=== PATIENT | male | born 1975 | race Two or more races ===

== ENCOUNTER 2020-07-05 21:34 | Emergency (ER) | payer SELFPAY ==
[2020-07-05 21:58] VITALS: BP 206/131; PULSE 100; RESP 20; TEMP 36.9; O2SAT 95
--- NOTE | 2020-07-05 21:59 | ECG_ITS ---
Measurements Intervals [place] Rate: 89 P: 14 GA: 184 QRS: 4 QRSD: 104 T: 27 QT: 365 QTc: 446 Interpretive Statements SINUS RHYTHM BORDERLINE R WAVE PROGRESSION, ANTERIOR LEADS BASELINE WANDER- II, AVR, AVL, AVF, V1 BORDERLINE ECG Electronically Signed On 07-06-2020 7:37:29 CDT by Boris Thomas D.O.
--- NOTE | 2020-07-05 22:17 | ED.GENADULT ---
HPI - General Adult General Chief complaint: Shortness of Breath/Dyspnea Stated complaint: trouble breathing Source: patient Mode of arrival: ambulatory Limitations: no limitations History of Present Illness HPI narrative: Yuliet is a Croatian speaking man with a PMH of HTN that presented to the ER because he has been out of his meds for 5 days. Since being out of meds he has had some sweating, dizziness, and blurred vision. He has some pain in his upper back when he drives. No anuria, nausea, chest pain, or syncope. Related Data Home Medications Medication Instructions Recorded Confirmed amlodipine 10 mg PO DAILY 07/05/20 07/05/20 amlodipine [Norvasc] 10 mg PO DAILY 07/05/20 07/05/20 aspirin [Adult Aspirin EC Low 81 mg PO DAILY 07/05/20 07/05/20 Strength] metoprolol tartrate 100 mg PO DAILY 07/05/20 07/05/20 Allergies Allergy/AdvReac Type Severity Reaction Status Date / Time No Known Allergies Allergy Verified 07/05/20 22:03 Review of Systems Constitutional: Constitutional: Denies chills, Denies fever(s) and Denies weakness Eyes: Eyes: Reports no additional eye complaints ENT: Reports system reviewed and no additional complaints, except as documented Cardiovascular: Cardiovascular: Denies chest pain, Denies rapid heart rate and Denies radiating jaw, neck or arm pain Respiratory: Respiratory: Denies cough and Denies wheezing Gastrointestinal: Gastrointestinal: Reports no additional gastrointestinal complaints Genitourinary: Genitourinary: Reports no additional male genitourinary complaints Musculoskeletal: Musculoskeletal: Reports no additional musculoskeletal complaints Integumentary/Breasts: Skin/Breast: Reports system reviewed and no additional complaints, except as docu Neurologic: Reports system reviewed and no additional complaints, except as documented Psychiatric: Psychiatric: Reports no additional psychiatric complaints Endocrine: Endocrine: Reports no additional endocrine complaints Hematologic/Lymphatic: Hematologic/Lymphatic: Reports no additional hematologic/lymphatic complaints Allergic/Immunologic: Allergic/Immunologic: Reports no additional allergic/immunologic complaints [facility] Social History Social History Gender identity (if verbalized by the patient): Male Exam Const: General: no acute distress and alert Orientation/consciousness: patient oriented x3 Limitations: No altered mental status HENMT: Head: normal to inspection Other: atraumatic Eyes: Conjunctivae: conjunctivae normal Pupils: Equal, round and reactive pupils present Neck: Neck: normal visual inspection Chest: Chest palpation & inspection: normal inspection of the chest Resp: Effort & Inspection: normal respiratory effort, not labored and not tachypneic Auscultation: clear to auscultation bilaterally Cardio: Rate: regular rate Rhythm: regular rhythm Heart sounds: no murmurs GI: GI Palp: Yes Soft to palpation, No Tenderness to palpation present (GI) and No Guarding due to palpation present (GI) Skin: General skin exam: normal color Rashes: no rashes Neuro: General: patient oriented x3, moves all extremities and CN's II-XI intact bilaterally Speech: normal speech Extrem: General: normal to inspection Psych: Mental Status: mental status grossly normal Course Course Emergency Course: Yuliet was evaluated. Ordered EKG and labs. He was given does of his home meds as his BP was very high but no signs of hypertensive emergency. EKG showed NSR with a rate of 89, indeterminate axis and no ST elevation/depression. Labs were largely unremarkable and his BP continued to drop. Vital Signs Vital signs: Vital Signs Temperature 98.5 F 07/05/20 21:58 Pulse Rate 100 07/05/20 21:58 Respiratory Rate 20 07/05/20 21:58 Blood Pressure 206/131 H 07/05/20 21:58 Pulse Oximetry 95 07/05/20 21:58 Temperature 98.5 F 07/05/20 21:58
[2020-07-05 22:18] LABS: Basophils Absolute Auto 0.08 K/mm3 (0.00-0.10); Basophils Percent Auto 0.6 % (0.0-1.0); Eosinophils Absolute Auto 0.28 K/mm3 (0.02-0.50); Eosinophils Percent Auto 2.3 % (1.0-6.0); Hematocrit 44.3 % (40.0-54.0); Hemoglobin 14.8 g/dL (14.0-18.0); Immature Granulocyte Absolute 0.07 K/mm3 (0.00-0.00); Immature Granulocyte Percent A 0.6 % (0.0-0.0); Lymphocytes Absolute Auto 2.28 K/mm3 (1.10-4.50); Lymphocytes Percent Auto 18.5 % (18.0-42.0); Mean Corpuscular HGB Conc 33.4 g/dL (32.0-36.0); Mean Corpuscular Hemoglobin 28.9 pg (27.0-31.0); Mean Corpuscular Volume 86.5 fL (78.0-102.0); Mean Platelet Volume 9.6 fl (8.7-11.0); Monocytes Absolute Auto 0.86 K/mm3 (0.10-0.90); Neutrophils Absolute Auto 8.8 K/mm3 (1.7-7.2); Platelet Count Result 221 K/mm3 (150-420); Red Blood Count 5.12 M/mm3 (4.70-6.10); Red Cell Distribution Width 13.8 % (11.6-14.4); White Blood Count 12.3 K/mm3 (4.8-10.8)
[2020-07-05 22:20] VITALS: PULSE 99
[2020-07-05] MEDS: amLODIPine BESYLATE 5 MG TABLET 10 MG PO (22:20)
[2020-07-05] MEDS: METOPROLOL TARTRATE 50 MG TAB PO (22:20)
[2020-07-05 22:33] LABS: BNP 39.5 pg/mL (0-100)
[2020-07-05 22:35] LABS: Alanine Aminotransferase 38 U/L (16-63); Albumin Level 3.5 g/dL (3.4-5.0); Alkaline Phosphatase 93 U/L (46-116); Anion Gap 11 mmol/L (8-16); Aspartate Amino Transferase 22 U/L (15-37); Bilirubin,Total 0.4 mg/dL (0.00-1.00); Blood Urea Nitrogen 26 mg/dL (7-18); Calcium 8.7 mg/dL (8.5-10.1); Carbon Dioxide 27 mmol/L (21-32); Chloride 101 mmol/L (98-108); Estimated Glomerular Filt Rate 51; Glucose 140 mg/dL (70-99); Osmolality Calculated 294 mOsm/kg (285-295); Potassium 3.4 mmol/L (3.5-5.1); Sodium 139 mmol/L (136-145); Total Protein 7.3 g/dL (6.4-8.2)
[2020-07-05] MEDS: LOSARTAN POTASSIUM 50 MG TABLET 100 MG PO (22:37)
[2020-07-05 22:45] VITALS: BP 182/107; PULSE 81; RESP 20; O2SAT 95
[2020-07-05 22:50] VITALS: BP 179/87; PULSE 80; RESP 20; O2SAT 96
[2020-07-05 23:31] VITALS: BP 169/82; PULSE 88; RESP 20; O2SAT 96
== END 2020-07-05 23:33 | disposition home or self-care (01) ==
PROVIDERS: Emergency Provider Family Medicine
DX: I16.0 Hypertensive urgency (principal)
CPT/HCPCS: 36415; 80053; 83880; 84484; 85025; 93005; 99283; 99284; A9270